=== PATIENT | male | born 1975 | race Caucasian/White ===

== ENCOUNTER 2016-04-22 09:59 | Emergency (ER) | payer OTHER ==
[~2016-04-22] VITALS: Ht 182.9 cm; Wt 105.0 kg
[2016-04-22] MEDS ORDERED: PRILOSEC OTC20 MG PO (10:03)
[2016-04-22] MEDS ORDERED: MOTRIN800 MG PO (11:16)
[2016-04-22] MEDS ORDERED: NORCO 5/3251 TABLET PO (11:16)
[2016-04-22 12:02] VITALS: BP 122/68
== END 2016-04-22 12:05 | disposition home or self-care (01) ==
LOC: EME 09:59
PROC: 2W3QX1Z Immobilization of Right Lower Leg using Splint (ICD-10-PCS; principal; 2016-04-22)
DX: S82.841A Displaced bimalleolar fracture of right lower leg, initial encounter for closed fracture (principal); W00.0XXA Fall on same level due to ice and snow, initial encounter; X50.1XXA Overexertion from prolonged static or awkward postures, initial encounter; Y92.139 Unspecified place military base as the place of occurrence of the external cause; Y99.1 Military activity; F17.200 Nicotine dependence, unspecified, uncomplicated
CPT/HCPCS: 73610; 99281; 99285; J3010